=== PATIENT | male | born 1930 | race Caucasian/White ===

== ENCOUNTER 2016-04-25 03:18 | Emergency (ER) | payer OTHER ==
[~2016-04-25] VITALS: Ht 175.3 cm; Wt 80.0 kg
[2016-04-25 03:21] VITALS: BP 111/72
[2016-04-25 04:28] LABS: EOSINOPHIL (%) 2.9 % (0-5); EOSINOPHIL COUNT 0.3 K/uL (0-0.3); HEMATOCRIT 41.5 % (38.0-50.0); IMMATURE GRANULOCYTE (%) 0.3 % (0.0-0.7); IMMATURE GRANULOCYTE COUNT 0.3 K/uL; LYMPHOCYTE COUNT 2.2 K/uL (1.0-2.8); MCH 32.4 PG (29.0-34.0); MCV 95.4 FL (86-99); MONOCYTE (%) 8.6 % (3-12); MONOCYTE COUNT 0.8 K/uL (0-0.8); NEUTROPHIL (%) 63.6 % (45-76); NEUTROPHIL COUNT 5.7 K/uL (1.8-6.4); PLATELET COUNT 237 K/uL (156-360); RBC DIS.WIDTH-CV 12.4 % (11.8-14.6); RED BLOOD COUNT 4.35 M/uL (4.00-5.50)
[2016-04-25 04:31] LABS: AMYLASE 67 IU/L (1-118); CHLORIDE 107 mEq/L (99-109); POTASSIUM 4.1 mEq/L (3.7-5.4); SODIUM 142 mEq/L (136-147)
[2016-04-25 04:33] LABS: GLUCOSE 123 mg/dL (70-99)
[2016-04-25 04:35] LABS: ANION GAP 8 MEQ/L (2-14)
[2016-04-25 04:36] LABS: SERUM ETHYL ALCOHOL < 10 mg/dL
[2016-04-25 04:37] LABS: GFR ESTIMATE (CALCULATED) > 59 mL/min/
[2016-04-25 04:38] LABS: UREA NITROGEN (BUN) 22 mg/dL (9-23)
[2016-04-25 04:40] LABS: LIPASE 32 U/L (1.0-51.0)
[2016-04-25 04:41] LABS: TROP-I INTERPRETATION NEGATIVE; TROPONIN-I 0.02 ng/mL (0.0-0.30)
== END 2016-04-25 07:14 | disposition home or self-care (01) ==
LOC: EME 03:18
PROVIDERS: Emergency Medicine
PROC: 0HQ1XZZ Repair Face Skin, External Approach (ICD-10-PCS; principal; 2016-04-25)
DX: S01.81XA Laceration without foreign body of other part of head, initial encounter (principal); W18.30XA Fall on same level, unspecified, initial encounter; Y92.199 Unspecified place in other specified residential institution as the place of occurrence of the external cause; F03.90 Unspecified dementia, unspecified severity, without behavioral disturbance, psychotic disturbance, mood disturbance, and anxiety; I10 Essential (primary) hypertension; K21.9 Gastro-esophageal reflux disease without esophagitis
CPT/HCPCS: 70450; 70486; 71010; 72125; 80048; 81003; 82150; 83690; 84484; 85025; 86850; 86900; 86901; 93005; 99281; 99284; G0480

== ENCOUNTER 2016-11-05 12:47 | Emergency (ER) | payer OTHER ==
[~2016-11-05] VITALS: Ht 172.7 cm; Wt 86.3 kg
[2016-11-05 14:00] VITALS: BP 127/76
[2016-11-05 14:15] LABS: HEMATOCRIT 44.6 % (38.0-50.0); MCH 32.3 PG (29.0-34.0); MCHC 33.2 G/DL (30.0-36.0); MCV 97.4 FL (86-99); MEAN PLAT.VOLUME 8.9 uM^3 (9.0-12.4); PLATELET COUNT 281 K/uL (156-360); RBC DIS.WIDTH-CV 12.3 % (11.8-14.6); RBC DIS.WIDTH-SD 44.1 % (39-53); RED BLOOD COUNT 4.58 M/uL (4.00-5.50)
[2016-11-05 14:23] LABS: CHLORIDE 105 mEq/L (99-109); POTASSIUM 4.4 mEq/L (3.7-5.4); SODIUM 140 mEq/L (136-147)
[2016-11-05 14:25] LABS: GLUCOSE 95 mg/dL (70-99)
[2016-11-05 14:26] LABS: ANION GAP 11 MEQ/L (2-14)
[2016-11-05 14:27] LABS: TOTAL BILIRUBIN 0.4 mg/dL (0.0-1.0)
[2016-11-05 14:28] LABS: ALKALINE PHOSPHATASE 85 IU/L (3-129)
[2016-11-05 14:29] LABS: GFR ESTIMATE (CALCULATED) > 59 mL/min/
[2016-11-05 14:30] LABS: UREA NITROGEN (BUN) 21 mg/dL (9-23)
[2016-11-05 14:32] LABS: LIPASE 41 U/L (1.0-51.0)
[2016-11-05] MEDS ORDERED: MIRALAX17 GM PO (16:39)
== END 2016-11-05 18:23 | disposition home or self-care (01) ==
LOC: EME → EDBD 12:47 → EME 12:47
PROVIDERS: Emergency Medicine
DX: K59.00 Constipation, unspecified (principal); F03.90 Unspecified dementia, unspecified severity, without behavioral disturbance, psychotic disturbance, mood disturbance, and anxiety
CPT/HCPCS: 74176; 80053; 81003; 83605; 83690; 85027; 93005; 99281; 99285

== ENCOUNTER 2017-03-03 00:46 | Emergency (ER) | payer OTHER ==
[~2017-03-03] VITALS: Ht 180.3 cm; Wt 84.5 kg
[~2017-03-03 00:46] MED LIST: MIRALAX17 GM PO
[2017-03-03 01:24] LABS: MCH 32.3 PG (29.0-34.0); MCHC 33.7 G/DL (30.0-36.0); MCV 95.8 FL (86-99); MEAN PLAT.VOLUME 8.9 uM^3 (9.0-12.4); PLATELET COUNT 262 K/uL (156-360); RBC DIS.WIDTH-CV 12.1 % (11.8-14.6); RBC DIS.WIDTH-SD 42.8 % (39-53); RED BLOOD COUNT 4.49 M/uL (4.00-5.50); WHITE BLOOD COUNT 8.2 K/uL (4.1-10.2)
[2017-03-03 01:33] LABS: CHLORIDE 104 mEq/L (99-109); POTASSIUM 4.8 mEq/L (3.7-5.4); SODIUM 138 mEq/L (136-147)
[2017-03-03 01:35] LABS: GLUCOSE 103 mg/dL (70-99)
[2017-03-03 01:36] LABS: ANION GAP 9 MEQ/L (2-14)
[2017-03-03 01:37] LABS: TOTAL BILIRUBIN 0.5 mg/dL (0.0-1.0)
[2017-03-03 01:38] LABS: ALKALINE PHOSPHATASE 89 IU/L (3-129)
[2017-03-03 01:39] LABS: GFR ESTIMATE (CALCULATED) > 59 mL/min/
[2017-03-03 01:40] LABS: UREA NITROGEN (BUN) 26 mg/dL (9-23)
[2017-03-03 01:42] LABS: LIPASE 36 U/L (1.0-51.0)
[2017-03-03 04:24] VITALS: BP 135/75
== END 2017-03-03 04:24 | disposition home or self-care (01) ==
LOC: EME → EDBD 00:46 → EME 00:46
PROVIDERS: Emergency Medicine
DX: S70.02XA Contusion of left hip, initial encounter (principal); W19.XXXA Unspecified fall, initial encounter; Y92.199 Unspecified place in other specified residential institution as the place of occurrence of the external cause; F03.90 Unspecified dementia, unspecified severity, without behavioral disturbance, psychotic disturbance, mood disturbance, and anxiety; K21.9 Gastro-esophageal reflux disease without esophagitis; I10 Essential (primary) hypertension; Z88.2 Allergy status to sulfonamides
CPT/HCPCS: 70450; 72125; 73502; 80053; 83690; 85027; 99281; 99284

== ENCOUNTER 2017-06-08 02:08 | Emergency (ER) | payer OTHER ==
[~2017-06-08] VITALS: Ht 177.8 cm; Wt 90.6 kg
[2017-06-08 08:01] VITALS: BP 157/78
== END 2017-06-08 08:13 ==
LOC: EME → EDBD 02:08 → EME 02:08
PROC: 0JQ10ZZ Repair Face Subcutaneous Tissue and Fascia, Open Approach (ICD-10-PCS; principal; 2017-06-08)
DX: S01.81XA Laceration without foreign body of other part of head, initial encounter (principal); W18.30XA Fall on same level, unspecified, initial encounter; W22.09XA Striking against other stationary object, initial encounter; Y92.091 Bathroom in other non-institutional residence as the place of occurrence of the external cause; I10 Essential (primary) hypertension; K21.9 Gastro-esophageal reflux disease without esophagitis; F03.90 Unspecified dementia, unspecified severity, without behavioral disturbance, psychotic disturbance, mood disturbance, and anxiety; Z88.2 Allergy status to sulfonamides
CPT/HCPCS: 70450; 72125; 99281; 99284

== ENCOUNTER 2017-09-28 10:37 | Emergency (ER) | payer OTHER ==
[~2017-09-28] VITALS: Ht 172.7 cm; Wt 66.5 kg
[2017-09-28 14:08] VITALS: BP 151/83
== END 2017-09-28 14:08 | disposition home or self-care (01) ==
LOC: EME 10:37
DX: S00.81XA Abrasion of other part of head, initial encounter (principal); M54.2 Cervicalgia; M25.78 Osteophyte, vertebrae; M48.02 Spinal stenosis, cervical region; F03.90 Unspecified dementia, unspecified severity, without behavioral disturbance, psychotic disturbance, mood disturbance, and anxiety; W05.0XXA Fall from non-moving wheelchair, initial encounter
CPT/HCPCS: 70450; 70486; 72125; 99281; 99284